=== PATIENT | male | born 1990 | race Caucasian/White ===

== ENCOUNTER 2017-11-18 21:43 | Observation (INO) | payer BC ==
[~2017-11-18] VITALS: Ht 170.2 cm; Wt 66.0 kg
[2017-11-18 22:26] LABS: HEMATOCRIT 42.2 % (38.0-50.0); HEMOGLOBIN 14.7 G/DL (12.5-16.6); MCH 28.8 PG (29.0-34.0); MCHC 34.8 G/DL (30.0-36.0); MCV 82.7 FL (86-99); PLATELET COUNT 242 K/uL (156-360); RBC DIS.WIDTH-CV 13.4 % (11.8-14.6); RBC DIS.WIDTH-SD 40.4 % (39-53); WHITE BLOOD COUNT 8.7 K/uL (4.1-10.2)
[2017-11-18 22:34] LABS: ALBUMIN 4.3 g/dL (3.2-4.8); CHLORIDE 103 mEq/L (99-109); POTASSIUM 3.6 mEq/L (3.7-5.4); SODIUM 137 mEq/L (136-147)
[2017-11-18 22:37] LABS: GLUCOSE 107 mg/dL (70-99)
[2017-11-18 22:39] LABS: TOTAL BILIRUBIN 0.6 mg/dL (0.0-1.0)
[2017-11-18 22:40] LABS: ALKALINE PHOSPHATASE 36 IU/L (3-129); GFR ESTIMATE (CALCULATED) > 59 mL/min/ (58.99-99999)
[2017-11-18 22:41] LABS: UREA NITROGEN (BUN) 17 mg/dL (9-23)
[2017-11-18 22:42] LABS: AST (GOT) 25 IU/L (2-34)
[2017-11-18 22:43] LABS: ALT (GPT) 41 IU/L (3-49)
[2017-11-18 22:44] LABS: LIPASE 20 U/L (1.0-51.0)
[2017-11-18 22:49] LABS: TROP-I INTERPRETATION NEGATIVE; TROPONIN-I < 0.01 ng/mL (0.0-0.30)
[2017-11-19 01:10] LABS: APPEARANCE CLEAR ((CLEAR)); BILIRUBIN NEGATIVE; BLOOD NEGATIVE; COLOR YELLOW ((YELLOW)); GLUCOSE (STRIP) NEGATIVE; KETONES 5; LEUKOCYTES NEGATIVE; NITRITE NEGATIVE; PROTEIN (STRIP) NEGATIVE; SPECIFIC GRAVITY 1.012 (1.000-1.030); UCUL ADDED? NO; UROBILINOGEN 0.2 MG/DL (0.2-1.0)
[2017-11-19 03:34] LABS: SERUM ETHYL ALCOHOL < 10 mg/dL
[2017-11-19 03:50] VITALS: BP 123/73
[2017-11-19 05:21] LABS: TROP-I INTERPRETATION NEGATIVE; TROPONIN-I 0.01 ng/mL (0.0-0.30)
[2017-11-19 07:54] VITALS: BP 117/65
[2017-11-19 10:27] LABS: TROP-I INTERPRETATION NEGATIVE; TROPONIN-I < 0.01 ng/mL (0.0-0.30)
[2017-11-19 10:40] LABS: HDL CHOLESTEROL 66 MG/DL (Desirable>=40); LDL CHOLESTEROL 79 mg/dL (Desirable<100); NON-HDL CHOLESTEROL 88 mg/dL (Desirable<160); TOTAL CHOLESTEROL 154 mg/dL (Desirable<200); TRIGLYCERIDES 46 MG/DL (Normal: <150)
[2017-11-19 10:46] LABS: THYROTROPIN (TSH) 0.57 MIU/L (0.4-5.5)
[2017-11-19 12:12] VITALS: BP 122/73
[2017-11-19 14:15] LABS: HEMOGLOBIN A1c (GLYCOHEMOGLOB) 5.2 % (Below 5.7)
== END 2017-11-19 13:19 | disposition home or self-care (01) ==
LOC: EME 21:43 → EDOF 11-19 02:52 → ENRESERV 11-19 02:54 → 4SOUTH 11-19 03:43
PROVIDERS: Emergency Medicine; Physician Assistant Medical
DX: R55 Syncope and collapse (principal); R00.1 Bradycardia, unspecified; E87.6 Hypokalemia; E86.0 Dehydration; Z82.49 Family history of ischemic heart disease and other diseases of the circulatory system; K59.00 Constipation, unspecified
CPT/HCPCS: 70450; 71045; 74176; 80053; 80061; 81003; 83036; 83690; 84443; 84484; 85027; 93005; 93306; 99281; 99285; G0378; G0480; J7030